=== PATIENT | female | born 1975 | race Caucasian/White ===

== ENCOUNTER → 2016-08-23 | Outpatient (CLI) | payer BC ==
[2012-05-10 17:39] VITALS: BP 133/82
--- NOTE | 2016-08-24 16:00 | MG ---
HISTORY: SCREENING Comparison: Mammogram dated August 18, 2015. FINDINGS: Bilateral CC and MLO projections of the right and left breast were obtained. Heterogeneously dense fibroglandular tissue is seen to be present. Developing 5 mm asymmetry within the retroglandular tis juarez posterior left breast approximately 7 cm from the nipple. This is best seen on the CC view. No s ignificant architectural distortion, or clustered microcalcifications can be observed to suggest mal ignancy. No skin thickening or nipple retraction is appreciated. No pathological lymphadenopathy can be identified. IMPRESSION: 1. No mammographic evidence of malignancy right breast. 2. 5 mm asymmetry left breast as above. ACR CATEGORY: 0 - incomplete assessment. Recommendation: Spot compression views and targeted ultrasound of the left breast. Diagnostic CAD was utilized and reviewed. * 0 (ZERO) - ASSESSMENT INCOMPLETE; ADDITIONAL IMAGING IS NEEDED. * 1/1 (ONE) - NEGATIVE. * 2/II (TWO) - BENIGN FINDINGS. * 3/III (THREE) - PROBABLY BENIGN FINDING; SHORT INTERVAL FOLLOW-UP SUGGESTED. * 4/IV (FOUR) - SUSPICIOUS ABNORMALITY; BIOPSY SHOULD BE CONSIDERED. * 5/V - HIGHLY SUSPICIOUS OF MALIGNANCY; BIOPSY SHOULD BE PERFORMED. A NEGATIVE X-RAY REPORT SHOULD NOT DELAY BIOPSY IF A DOMINANT OR CLINICALLY SUSPICIOUS MASS IS PRESENT; 4 TO 8 PERCENT OF CANCERS ARE NOT IDENTIFIED BY X-RAY. A NEG ATIVE REPORT MAY REINFORCE THE CLINICAL IMPRESSION. ADENOSIS AND DENSE BREASTS MAY OBSCURE AN UNDER LYING NEOPLASM. Reported By:
== END ==
LOC: RAD 15:29
PROVIDERS: ATTEND Obstetrics & Gynecology
DX: Z12.31 Encounter for screening mammogram for malignant neoplasm of breast (principal)
CPT/HCPCS: 77067

== ENCOUNTER → 2016-08-29 | Outpatient (CLI) | payer BC ==
[2012-05-10 17:39] VITALS: BP 133/82
--- NOTE | 2016-08-30 09:24 | MG ---
HISTORY: Left breast focal asymmetry Comparison: August 23, 2016 Diagnostic left mammogram FINDINGS: Spot-compression CC views and mediolateral view of the left breast were obtained. There is a persist ent focal asymmetry within the posterior central left breast and likely within the upper aspect of t he left breast. Targeted sonography of the left breast demonstrates a smoothly marginated ovoid hypo echoic nodule at the 11 o'clock position, likely corresponding to the mammographic focal asymmetry. The nodule measures 4 mm x 5 mm x 9 mm in greatest dimensions. There is increased through transmissi on and no internal Doppler flow. The nodule demonstrates mild cystic change, with tiny anechoic foci internally. This nodule may represent a complicated cyst containing internal debris. However, short interval sonographic followup in 6 months is recommended in order to document stability. No signifi cant architectural distortion, mass or clustered microcalcifications can be observed to suggest yuko gnancy. No skin thickening or nipple retraction is appreciated. No pathological lymphadenopathy c an be identified. IMPRESSION: 1. Small nodule, which has imaging characteristics suggestive of a complicated cyst, likely correspo nding to the mammographic focal asymmetry as described above. However, given the mildly complicated features, short interval sonographic followup in 6 months is recommended. ACR CATEGORY 3 - probably benign finding; short interval followup suggested Targeted sonography recommended in 6 months Diagnostic CAD was utilized and reviewed. * 0 (ZERO) - ASSESSMENT INCOMPLETE; ADDITIONAL IMAGING IS NEEDED. * 1/1 (ONE) - NEGATIVE. * 2/II (TWO) - BENIGN FINDINGS. * 3/III (THREE) - PROBABLY BENIGN FINDING; SHORT INTERVAL FOLLOW-UP SUGGESTED. * 4/IV (FOUR) - SUSPICIOUS ABNORMALITY; BIOPSY SHOULD BE CONSIDERED. * 5/V - HIGHLY SUSPICIOUS OF MALIGNANCY; BIOPSY SHOULD BE PERFORMED. A NEGATIVE X-RAY REPORT SHOULD NOT DELAY BIOPSY IF A DOMINANT OR CLINICALLY SUSPICIOUS MASS IS PRESENT; 4 TO 8 PERCENT OF CANCERS ARE NOT IDENTIFIED BY X-RAY. A NEG ATIVE REPORT MAY REINFORCE THE CLINICAL IMPRESSION. ADENOSIS AND DENSE BREASTS MAY OBSCURE AN UNDER LYING NEOPLASM. Reported By:
--- NOTE | 2016-08-30 09:26 | US ---
HISTORY: Right breast focal asymmetry Study: Right breast sonogram Comparison: Diagnostic mammogram performed on same day Technique: Multiple grayscale and color flow images of the right breast were obtained. Findings: Imaging of the right breast demonstrates a smoothly marginated hypoechoic nodule located at the 11 o 'clock position and likely corresponding to the mammographic focal asymmetry. The nodule measures ap proximately 9 mm x 4 mm x 5 mm in greatest dimensions. There is increased through transmission and n o internal Doppler flow. Very small anechoic foci are scattered within the nodule, suggesting cystic change. This nodule is favored to likely represent a complicated cyst versus a small fibroadenoma. However, short interval sonographic followup in 6 months is recommended in order to document stabili ty. IMPRESSION: 1. Small hypoechoic nodule likely corresponding to the mammographic focal asymmetry and having imagi ng characteristics suggestive of a complicated cyst versus fibroadenoma. Short interval sonographic followup in 6 months is recommended in order to document stability. Reported By:
== END | disposition home or self-care (01) | DRG 601 ==
LOC: RAD 13:12
PROVIDERS: ATTEND Obstetrics & Gynecology
DX: R92.8 Other abnormal and inconclusive findings on diagnostic imaging of breast (principal); N63 Unspecified lump in breast
CPT/HCPCS: 76642; 77065